=== PATIENT | male | born 1970 | race Caucasian/White ===

== ENCOUNTER 2024-06-14 17:02 | Inpatient (IN) | payer OTHER, SELFPAY ==
--- NOTE | ~2024-06-14 | CT_ITS ---
CLINICAL HISTORY: gi bleed CT abdomen and pelvis without and with contrast Indication: GI bleed Comparison: None. Findings: Lung bases are clear. The liver is nodular in contour. The spleen is enlarged. The gallbladder, adrenal glands and pancreas are unremarkable. Kidneys, ureters and bladder are normal. Diffuse stranding throughout the vasa recta. There is gas and fluid throughout nondistended small and large bowel. Mild hyperenhancement of bowel wall mucosa. No pneumatosis or free air. There is no evidence of contrast pooling within bowel lumen to suggest active GI bleed by CT. Pars defects are noted at L5. There is anterolisthesis of L5 with respect to S1. Impression: No evidence of active GI bleed by CT. Cirrhotic appearing liver with splenomegaly. Probable enteritis. Additional incidental findings. This document has been electronically signed by: Brayden Bailey MD on 06/15/2024 08:11:23
[2024-06-14 17:35] VITALS: BP 172/96; PULSE 105; RESP 20; TEMP 37; O2SAT 100; BMI 27.7
--- NOTE | 2024-06-14 17:39 | ED_ITS ---
HPI - General Adult General Chief complaint: GI Bleed Stated complaint: Vomiting blood Time Seen by Provider: 06/14/24 18:33 Source: patient Mode of arrival: ambulatory Limitations: no limitations History of Present Illness ED Provider: HPI narrative: Patient alcoholic drinks beer with history of grade 1 varices which was prophylactically ligated in 2021 were not bleeding at that time comes here as he was not feeling good earlier and since 14:00 started vomiting coffee colored had about 3 episodes also had 2 bowel movement which is dark in color no history of peptic ulcer in the past patient denied any history of alcohol withdrawal in the past Related Data Home Medications ?Medication ?Instructions ?Recorded ?Confirmed fexofenadine 60 mg tablet 60 mg PO DAILY 06/14/24 06/14/24 Previous Rx's ?Medication ?Instructions ?Recorded carvedilol 3.125 mg tablet 3.125 mg PO Q12H #180 tabs 06/15/24 pantoprazole 20 mg tablet,delayed 20 mg PO Q12H #120 tabs 06/15/24 release Allergies Allergy/AdvReac Type Severity Reaction Status Date / Time No Known Allergies Allergy Verified 06/15/24 13:42 Review of Systems 2 Review of Systems: Yes all other systems are reviewed and are negative PMFSH Past Medical History Medical History (Updated 06/15/24 @ 01:54 by Sly Harrison MD) Gastric varices without bleeding Alcoholic cirrhosis Surgical History (Updated 06/15/24 @ 13:42 by Jaelyn Sanchez RN) History of wisdom tooth extraction Hx of colonoscopy History of esophagogastroduodenoscopy (EGD) Social History Social History Household Members: Spouse Housing: House Are you a primary director of managed care to a significant other at home: No Do you presently have visiting nurse or other home services: No Alcohol intake: current Alcohol intake frequency: 3 or more drinks per day Alcohol type: beer Patient Tobacco Use Status: Never used Tobacco e-Cigarette/Vaping Use: Never Used Physical Exam ED Vital Signs: Vital Signs - 24 hr 06/14/24 17:35 06/14/24 18:21 Temperature 98.6 F 98.7 F Pulse Rate 105 H 112 H Respiratory Rate 20 16 Blood Pressure 172/96 H 171/96 H Pulse Oximetry 100 97 Oxygen Delivery Method Room Air Room Air BMI result Body Mass Index 27.7 Appearance: Alert. Oriented X3. No acute distress. Eyes: PERRLA, No Nystagmus no pallor ENT: Pharynx normal. Oral Mucosa moist Neck: Normal inspection. Neck supple. CVS: Normal heart rate and rhythm. Pulses normal. Respiratory: No respiratory distress. Equal air entry bilateral, no wheezing/rales/rhonchi Abdomen: Soft and nontender. Bowel sounds are present, no mass palpable, no CVA tenderness rectal: Black in color guaiac positive Skin: Skin warm and dry. Normal skin color. Normal skin turgor. Extremities: No lower extremity edema. No calf tenderness Neuro: Oriented X 3. No motor deficit. No sensory deficit.No cerebellar signs , cranial nerves II-XII intact Course Course Course Narrative: RME: 54-year-old male presents to ED for mutliple episodes vomiting coffee ground. Patient has past medical history of liver cirrhosis and esophageal varices due to drinking alcohol. Patient states abdominal pain and vomiting blood. Patient had labs ordered. Charges med aware to rule out GI bleed. Medications Administered Discontinued Medications Generic Name Dose Route Start Last Admin Trade Name Freq PRN Reason Stop Dose Admin Ceftriaxone Sodium 2 gm 06/14/24 19:47 06/14/24 20:06 Ceftriaxone Sodium 2 Gm Vial IVPUSH 06/14/24 19:48 2 gm ONCE ONE Administration Sodium Chloride 1,000 mls @ 999 mls/hr 06/14/24 18:39 06/14/24 20:15 Ns IV 06/14/24 19:39 Infused .Q1H1M ONE Infusion Pantoprazole Sodium 80 mg/ 100 mls @ 10 mls/hr 06/14/24 19:00 06/15/24 16:59 Sodium Chloride IV Not Given .Q10H ROSALBA 8 MG/HR Octreotide Acetate 500 mcg/ 501 mls @ 50.1 mls/hr 06/14/24 20:30 06/15/24 16:02 Sodium Chloride IVCONT Infused .Q10H ROSALBA Infusion 50 MCG/HR Thiamine HCl 100 mg/ Sodium 101 mls @ 202 mls/hr 06/14/24 22:20 06/15/24 09:07 Chloride IV Infused DAILY ROSALBA Infusion Iohexol 80 ml 06/14/24 19:58 06/14/24 19:58 Iohexol 350 Mg/Ml 100 Ml Infus..Btl IV 06/14/24 19:59 80 ml ONCE ONE Administration Octreotide Acetate 100 mcg 06/14/24 19:47 06/14/24 20:06 Octreotide Acetate 100 Mcg/Ml Ampul IVPUSH 06/14/24 19:48 100 mcg ONCE ONE Administration Ondansetron HCl 4 mg 06/14/24 20:08 06/14/24 20:21 Ondansetron Hcl 4 Mg/2 Ml Vial IVPUSH 06/14/24 20:09 4 mg ONCE ONE Administration Pantoprazole Sodium 80 mg 06/14/24 18:39 06/14/24 19:13 Pantoprazole Sodium 40 Mg/10 Ml Vial IVPUSH 06/14/24 18:40 80 mg ONCE ONE Administration Sodium Chloride 3 ml 06/15/24 00:00 06/15/24 17:00 0.9 % Sodium Chloride Flush 3 Ml Syringe IVFLUSH 3 ml QSHIFT ROSALBA Administration Medical Decision Making Medical Decision Making MDM Narrative: Patient with upper GI bleed with melena and coffee colored vomitus multiple times H&H stable vitals stable with history of alcohol use and grade 1 varices status post ligation. Case discussed with Dr. Yifan SULLIVAN advised to give Sandostatin along with Protonix IV also was given Rocephin for SBP prophylaxis patient was not noticed to have thrombocytopenia of 68k bleeding scan was ordered report is still pending hospitalist aware Differential Diagnosis Differential Diagnoses: The differential diagnosis associated with the presentation includes Alcoholic gastritis/peptic ulcer disease/variceal bleed/cirrhosis Admission/Observation Consideration of admission/observation: Escalation of care including admission/observation considered Consult Healthcare Provider Management of the patient was discussed with: Hospitalist Lab Data [facility] Lab Attestation statement: I reviewed the patient's lab results. 06/15/24 06:33 06/15/24 06:33 Labs: Lab Results 06/14/24 06/14/24 06/14/24 Range/Units 17:51 18:28 19:24 WBC 6.6 (4.8-10.8) X10*3/uL RBC 4.28 L (4.60-5.80) X10*6/uL Hgb 13.9 L (14.0-18.0) g/dl Hct 39.7 L (42.0-52.0) % MCV 92.8 (80.0-98.0) fL MCH 32.5 (27.0-33.0) pg MCHC 35.0 (31.0-36.0) g/dl RDW 13.6 (11.0-16.0) % Plt Count 68 L (160-400) X10*3/uL MPV 9.6 (9.4-12.4) fL Immature Gran % (Auto) 0.3 (0.0-0.4) % Neut % (Auto) 78.3 H (45-73) % Lymph % (Auto) 10.2 L (20-40) % [place] % (Auto) 10.2 (2-11) % Eos % (Auto) 0.5 (0-4) % Baso % (Auto) 0.5 (0-2) % Lymph # (Auto) 0.7 L (1.2-4.9) X10*3/uL [place] # (Auto) 0.7 (0.1-1.2) X10*3/uL Eos # (Auto) 0.0 (0.0-0.4) X10*3/uL Baso # (Auto) 0.0 (0.0-0.2) X10*3/uL Abs Immat Gran (auto) 0.02 (0.00-0.03) X10*3/uL Absolute Neuts (auto) 5.2 (2.0-8.3) x10*3/uL Absolute Nucleated RBC 0.000 (0.0-0.012) X10*3/uL Nucleated RBC % (auto) 0.0 (0.0-0.2) /100WBC PT 14.7 H (10.9-12.4) SEC INR 1.3 H (0.9-1.1) APTT 30.2 (26.0-36.8) SEC Sodium 141 (135-145) mmol/L Potassium 4.3 (3.3-5.1) mmol/L Chloride 104 (96-108) mmol/L Carbon Dioxide 27 (22-29) mmol/L Anion Gap 14 (12-20) BUN 17 H (9-16) mg/dL Creatinine 0.71 (0.5-1.4) mg/dL Estim Creat Clear Calc 129.0 Estimated GFR > 60 Random Glucose 187 H (60-115) mg/dL Calcium 9.0 (8.4-10.2) mg/dL Total Bilirubin 2.4 H (0.0-1.0) mg/dL AST 65 H (5-37) U/L ALT 51 H (0-40) U/L Alkaline Phosphatase 63 (39-117) U/L Total Protein 7.9 (6.5-8.0) g/dL Albumin 4.3 (3.5-5.0) g/dL Lipase 26 (8-78) U/L Stool Occult Blood POSITIVE (NEGATIVE) Ethyl Alcohol < 10 mg/dL Blood Type O Positive Antibody Screen NEGATIVE Independent Interpretation I performed an independent interpretation of an: CT Scan Interpretation: Pending bleeding scan Critical Care Time Critical Care Time Critical Care Time: Yes Total Critical Care Time: 55 Attestation: The patient was critically ill with a high probability of imminent or life threatening deterioration. I spent greater than 65??minutes of discontinuous time evaluating the patient,delivering critical care at the bedside, discussing and evaluating pertinent data with consultants. Critical care time does not include time spent performing separately billable procedures or teaching. Total time spent performing critical care was 55???minutes. Discharge Plan Discharge Clinical Impression: Acute upper GI bleed, Alcoholic cirrhosis, Thrombocytopenia, Alcohol use Patient Disposition: Admitted As Inpatient Interventions: Admission Worksheet (ED) Last Done: 06/14/24 21:52 Discharge Date/Time: 06/14/24 22:44
--- NOTE | 2024-06-14 17:41 | PC.NURSE ---
charge nurse made aware of patient to be brought back into main
[2024-06-14 17:55] LABS: MANUAL DIFF FLAG NO
[2024-06-14 18:03] LABS: INTERNATIONAL NORM RATIO 1.3 (0.9-1.1); Prothrombin Time 14.7 SEC (10.9-12.4)
[2024-06-14 18:05] LABS: Partial Thromboplastin Time 30.2 SEC (26.0-36.8)
[2024-06-14 18:14] LABS: Basophils Percent Auto 0.5 % (0-2); Eosinophils Percent Auto 0.5 % (0-4); Hematocrit 39.7 % (42.0-52.0); Hemoglobin 13.9 g/dl (14.0-18.0); Imm Gran Abs Auto 0.02 X10*3/uL (0.00-0.03); Imm Gran Pct Auto 0.3 % (0.0-0.4); Lymphocytes Absolute Auto 0.7 X10*3/uL (1.2-4.9); Lymphocytes Percent Auto 10.2 % (20-40); Mean Corpuscular Hemoglobin 32.5 pg (27.0-33.0); Mean Corpuscular Volume 92.8 fL (80.0-98.0); Monocytes Absolute Auto 0.7 X10*3/uL (0.1-1.2); Monocytes Percent Auto 10.2 % (2-11); Neutrophils Absolute Auto 5.2 x10*3/uL (2.0-8.3); Neutrophils Percent Auto 78.3 % (45-73); Red Blood Count 4.28 X10*6/uL (4.60-5.80); Red Cell Distribution Width 13.6 % (11.0-16.0); White Blood Count 6.6 X10*3/uL (4.8-10.8)
[2024-06-14 18:21] VITALS: BP 171/96; PULSE 112; RESP 16; TEMP 37.1; O2SAT 97
[2024-06-14 18:25] LABS: Mean Platelet Volume 9.6 fL (9.4-12.4); Platelet Count 68 X10*3/uL (160-400)
[2024-06-14 18:38] LABS: Alanine Aminotransferase 51 U/L (0-40); Albumin Level 4.3 g/dL (3.5-5.0); Alkaline Phosphatase 63 U/L (39-117); Anion Gap 14 (12-20); Aspartate Amino Transferase 65 U/L (5-37); Bilirubin Total 2.4 mg/dL (0.0-1.0); Blood Urea Nitrogen 17 mg/dL (9-16); Carbon Dioxide 27 mmol/L (22-29); Chloride 104 mmol/L (96-108); Estimated Glomerular Filt Rate > 60; Ethanol < 10 mg/dL; Glucose Random 187 mg/dL (60-115); Lipase 26 U/L (8-78); Potassium 4.3 mmol/L (3.3-5.1); Sodium 141 mmol/L (135-145); Total Protein 7.9 g/dL (6.5-8.0)
--- NOTE | 2024-06-14 18:39 | PC.NURSE ---
Patient is a 54-year-old male presents to ED for mutliple episodes vomiting coffee ground. Patient has past medical history of liver cirrhosis and esophageal varices due to drinking alcohol. Last episode occurred in June of 2022 where an EGD was performed and varices were banded. Patient alert and oriented. Jose Daniel and diaphoretic. cafeteria monitor applied and stach noted. Lungs clear bilat. Respiration even and non-labored. Abdomen soft. sl distended with positive bowel sounds. Denies any abdominal pain but c/o nausea. Positive pedal pulses with no edema.
[2024-06-14] MEDS: 0.9 % Sodium Chloride 1,000 ML 999 ML IV (19:13)
[2024-06-14] MEDS: Pantoprazole Sodium 40 MG/10 ML VIAL 80 MG IVPUSH (19:13)
[2024-06-14] MEDS: Pantoprazole Sodium 80 MG in 0.9 % Sodium Chloride 80 ML 10 MG IV (19:25)
[2024-06-14 19:37] LABS: OBS Int Ctl Valid YES; OBS1 POSITIVE (NEGATIVE)
[2024-06-14] MEDS: iohexoL 350 MG/ML 100 ML INFUS..BTL 80 ML IV (19:58)
[2024-06-14] MEDS: cefTRIAXone sodium 2 GM VIAL IVPUSH (20:06)
[2024-06-14] MEDS: Octreotide Acetate 100 MCG/ML AMPUL IVPUSH (20:06)
[2024-06-14] MEDS: Octreotide Acetate 500 MCG in 0.9 % Sodium Chloride 500 ML 50.1 MCG IVCONT (20:12)
[2024-06-14] MEDS: ondansetron HCL 4 MG/2 ML VIAL IVPUSH (20:21)
--- NOTE | 2024-06-14 20:40 | PC.NURSE ---
Patient vomited approximately 150cc of coffee ground emesis.
--- NOTE | 2024-06-14 21:25 | PM.IMHP ---
History of Present Illness Date of Service: 06/14/24 Chief Complaint: Coffee-ground emesis This has a 54-year-old male with pertinent history of alcoholic cirrhosis, not on prescription home medications who presents to the emergency department for evaluation of coffee-ground emesis. Patient states he had 3 episodes of coffee-ground emesis on the day of presentation. Also noticed black stools the day of presentation. Denies abdominal pain, fever or chills. Does have a history of alcoholic cirrhosis and does not take any home prescription medications for it. Patient states this happened 2 years ago when he was told he has varices. No chest pain, palpitations, shortness of breath, changes in urinary habits. In the emergency department, imaging with. Stool occult blood positive. Patient was initiated on IV Protonix, IV octreotide and given IV ceftriaxone in the ER. Review of Systems Constitutional: Constitutional: Reports fatigue and Reports malaise Cardiovascular: Cardiovascular: Reports no additional cardiovascular complaints Respiratory: Respiratory: Reports no additional respiratory complaints Gastrointestinal: Gastrointestinal: Reports melena and Reports coffee ground emesis Genitourinary: Genitourinary: Reports no additional male genitourinary complaints Endocrine: Endocrine: Reports fatigue [facility] Medical History Alcoholic cirrhosis Pertinent family history: No family history of early CAD Social History Alcohol intake: current Alcohol intake frequency: 3 or more drinks per day Alcohol type: beer Advance Directives: No Advance Directives Information Provided: No Meds Allergies Allergy/AdvReac Type Severity Reaction Status Date / Time No Known Allergies Allergy Verified 06/14/24 17:35 Active Medications: Current Medications Ceftriaxone Sodium (Ceftriaxone Sodium 1 Gm Vial) 1 gm IVPUSH Q24H ROSALBA Pantoprazole Sodium 80 mg/ (Sodium Chloride) 100 mls @ 10 mls/hr IV .Q10H ROSALBA Last Admin: 06/14/24 19:25 Dose: 8 mg/hr, 10 mls/hr Octreotide Acetate 500 mcg/ (Sodium Chloride) 501 mls @ 50.1 mls/hr IVCONT .Q10H ROSALBA Last Admin: 06/14/24 20:12 Dose: 50 mcg/hr, 50.1 mls/hr Home Medications ?Medication ?Instructions ?Recorded ?Confirmed ?Last Taken ?Type fexofenadine 60 mg tablet 60 mg PO DAILY 06/14/24 06/14/24 06/13/24 History omeprazole magnesium 20 mg 20 mg PO DAILY@0630 PRN Heartburn 06/14/24 06/14/24 Unknown History tablet,delayed release (Prilosec OTC) Physical Exam Vital Signs and Narrative: Vital Signs: Last Vital Signs Temp 98.7 F 06/14/24 18:21 Pulse 112 H 06/14/24 18:21 Resp 16 06/14/24 18:21 BP 171/96 H 06/14/24 18:21 Pulse Ox 97 06/14/24 18:21 O2 Del Method Room Air 06/14/24 18:21 BMI result Body Mass Index 27.7 Middle-aged male lying in bed in no distress Neck supple, no JVD Regular rate and rhythm, S1-S2 heard Regular breath sounds bilaterally, no wheezing or crackles appreciated Abdomen soft nontender, no guarding, no rigidity Patient is awake, alert and oriented to self, place, time and person ; no focal motor deficit Psych: Normal mood No pedal edema Results Labs 06/14/24 17:51 06/14/24 17:51 Labs: Laboratory Results - last 24 hr 06/14/24 06/14/24 06/14/24 17:51 18:28 19:24 MCV 92.8 MCH 32.5 MCHC 35.0 RDW 13.6 Plt Count 68 L MPV 9.6 Immature Gran % (Auto) 0.3 Neut % (Auto) 78.3 H Lymph % (Auto) 10.2 L [place] % (Auto) 10.2 Eos % (Auto) 0.5 Baso % (Auto) 0.5 Lymph # (Auto) 0.7 L [place] # (Auto) 0.7 Eos # (Auto) 0.0 Baso # (Auto) 0.0 Abs Immat Gran (auto) 0.02 Absolute Neuts (auto) 5.2 Absolute Nucleated RBC 0.000 Nucleated RBC % (auto) 0.0 PT 14.7 H INR 1.3 H APTT 30.2 Anion Gap 14 Estim Creat Clear Calc 129.0 Estimated GFR > 60 Random Glucose 187 H Calcium 9.0 Total Bilirubin 2.4 H AST 65 H ALT 51 H Alkaline Phosphatase 63 Total Protein 7.9 Albumin 4.3 Lipase 26 Stool Occult Blood POSITIVE Ethyl Alcohol < 10 Blood Type O Positive Antibody Screen NEGATIVE Assessment and Plan (1) Acute upper GI bleed: Status: Acute Plan This has a 54-year-old male with pertinent history of alcoholic cirrhosis, not on prescription home medications who presents to the emergency department for evaluation of coffee-ground emesis. #. Acute GI bleed in a patient with alcoholic cirrhosis: Will admit patient with cardiac monitoring. Continue IV octreotide and IV Protonix drip. Also initiated on IV ceftriaxone for SBP prophylaxis. Closely monitor hemodynamics and H&H. Consulted Gastroenterology, appreciate assistance. Patient not on diuretics, beta-gilson, will not initiate in the setting of active GI bleed. Also not on lactulose. #. Alcohol use disorder: Monitor CIWA. Initiating thiamine. #. Thrombocytopenia in the setting of cirrhosis Med rec pending DVT prophylaxis: Mechanical Full code Admit as inpatient and will require two night minimum hospital stay for management of GI bleed, close monitoring H&H and hemodynamics (as above), which is not possible in a lesser acute setting. Gastroenterology consult pending Quality Stroke Does the patient have a stroke diagnosis?: No VTE Prior VTE?: No VTE Risk Level:: Medical - moderate - high VTE Device Contraindication: N/A - Device Ordered VTE Drug Contraindication: Treatment Not Indicated
--- NOTE | 2024-06-14 21:41 | PHA.MEDREC ---
Addendum entered by Diamond Apodaca RPh 06/14/24 21:59: REVIEWED BY [facility] Original Note: Pharmacy Consult ? Medication Reconciliation Pharmacy has completed the medication reconciliation. Spoke with patient and at bedside who confirmed the pt is only taking Haritha 60mg once a day and Prilosec OTC 20mg tabs once as needed for heartburn and nothing else at this time.
--- NOTE | 2024-06-14 21:46 | PC.NURSE ---
Pt ambulatory to restroom with steady gait.
[2024-06-14 21:47] VITALS: BP 163/86; PULSE 106; RESP 16; TEMP 36.9; O2SAT 96
[2024-06-14 22:51] VITALS: BMI 27.4
[2024-06-14] MEDS: Thiamine HCL 100 MG in 0.9 % Sodium Chloride 100 ML 202 MG IV (23:42)
[2024-06-14] MEDS: 0.9 % Sodium Chloride Flush 3 ML SYRINGE IVFLUSH (23:48)
[2024-06-15] VITALS (9 sets, daily range): BP systolic 129–168; BP diastolic 75–88; PULSE 70–96; RESP 16–18; TEMP 36.6–37.4; O2SAT 96–98; BMI 28.2
[2024-06-15] MEDS: Pantoprazole Sodium 80 MG in 0.9 % Sodium Chloride 80 ML 10 MG IV (05:47)
[2024-06-15] MEDS: Octreotide Acetate 500 MCG in 0.9 % Sodium Chloride 500 ML 50.1 MCG IVCONT (05:48)
[2024-06-15 07:04] LABS: MANUAL DIFF FLAG NO
[2024-06-15 07:12] LABS: Basophils Percent Auto 0.5 % (0-2); Eosinophils Absolute Auto 0.1 X10*3/uL (0.0-0.4); Eosinophils Percent Auto 1.8 % (0-4); Hemoglobin 12.5 g/dl (14.0-18.0); Lymphocytes Absolute Auto 0.9 X10*3/uL (1.2-4.9); Lymphocytes Percent Auto 20.8 % (20-40); Mean Corpuscular HGB Conc 34.7 g/dl (31.0-36.0); Mean Corpuscular Hemoglobin 32.7 pg (27.0-33.0); Mean Corpuscular Volume 94.2 fL (80.0-98.0); Mean Platelet Volume 10.4 fL (9.4-12.4); Monocytes Absolute Auto 0.8 X10*3/uL (0.1-1.2); Monocytes Percent Auto 18.1 % (2-11); Neutrophils Absolute Auto 2.6 x10*3/uL (2.0-8.3); Neutrophils Percent Auto 58.8 % (45-73); Red Blood Count 3.82 X10*6/uL (4.60-5.80); Red Cell Distribution Width 13.6 % (11.0-16.0); White Blood Count 4.4 X10*3/uL (4.8-10.8)
[2024-06-15 07:13] LABS: Platelet Count 46 X10*3/uL (160-400)
[2024-06-15 07:35] LABS: Alanine Aminotransferase 40 U/L (0-40); Albumin Level 3.8 g/dL (3.5-5.0); Anion Gap 12 (12-20); Aspartate Amino Transferase 51 U/L (5-37); Bilirubin Total 3.1 mg/dL (0.0-1.0); Blood Urea Nitrogen 16 mg/dL (9-16); Calcium 8.4 mg/dL (8.4-10.2); Carbon Dioxide 29 mmol/L (22-29); Chloride 104 mmol/L (96-108); Creatinine Clr Calc Pharmacy 140.1; Estimated Glomerular Filt Rate > 60; Glucose Random 170 mg/dL (60-115); Potassium 3.7 mmol/L (3.3-5.1); Sodium 141 mmol/L (135-145); Total Protein 6.8 g/dL (6.5-8.0)
[2024-06-15 07:43] LABS: Alkaline Phosphatase 54 U/L (39-117)
[2024-06-15] MEDS: Thiamine HCL 100 MG in 0.9 % Sodium Chloride 100 ML 202 MG IV (08:32)
[2024-06-15] MEDS: 0.9 % Sodium Chloride Flush 3 ML SYRINGE IVFLUSH ×2 (08:39→17:00)
--- NOTE | 2024-06-15 09:03 | PM.GICN ---
History of Present Illness Data of Consult Service Date: 06/15/24 Requesting physician: Ciarra Metzger Primary Care Provider: Colten Mireles MD HPI Reason for consult: UGIB 54 y.o M with etOH use disorder that has led to cirrhosis with CSPH (hx of prophylactic EVBL 2022) who is here for UGIB. Pt reports hx of 7-8 beers per day. On Thursday he also had 3-4 drinks of hard liquor on top of routine etOH intake. Thursday started feeling unwell with x3 episodes of coffee ground emesis followed by 2 episodes of melena. No abd pain, heartburn, lightheadedness or chest pain. No NSAID use reported. Has known hx of cirrhosis, first diagnosed in 2022 - when needed to be admitted to [facility] for UGIB. EGD with small varices at that time. Pt maintained sobriety x 10 months after that but relapsed in 2023. Father with hx of etOH use disorder. On arrival to hospital vitals noted to be stable. H/H reviewed. LFts with AST>ALT and bili of 3.1. INR 1.3. CT bleed protocol was done in ER that confirms cirrhotic appearing liver with splenomegaly. Images independently reviewed that also show perogastric varices. Review of Systems Review of Systems: Yes all other systems are reviewed and are negative PMFSH Past Medical History Medical History (Updated 06/15/24 @ 01:54 by Sly Harrison MD) Gastric varices without bleeding Alcoholic cirrhosis Social History Social History Household Members: Spouse Housing: House Do you presently have visiting nurse or other home services: No Alcohol intake: current Alcohol intake frequency: 3 or more drinks per day Alcohol type: beer Patient Tobacco Use Status: Never used Tobacco e-Cigarette/Vaping Use: Never Used Meds Allergies Allergy/AdvReac Type Severity Reaction Status Date / Time No Known Allergies Allergy Verified 06/14/24 17:35 Active Medications: Current Medications Acetaminophen (Acetaminophen 325 Mg Tablet) 650 mg PO Q6H PRN PRN Reason: Pain, Mild 1-3,fever,headache Acetaminophen (Acetaminophen Supp 650 Mg Supp.Rect) 650 mg [place] Q6H PRN PRN Reason: Pain, Mild 1-3,fever,headache Calcium Carbonate (Calcium Carbonate 750 Mg Tab.Chew) 750 mg PO Q4H PRN PRN Reason: Heartburn Ceftriaxone Sodium (Ceftriaxone Sodium 1 Gm Vial) 1 gm IVPUSH Q24H [facility] Pantoprazole Sodium 80 mg/ (Sodium Chloride) 100 mls @ 10 mls/hr IV .Q10H [facility] Last Admin: 06/15/24 05:47 Dose: 8 mg/hr, 10 mls/hr Octreotide Acetate 500 mcg/ (Sodium Chloride) 501 mls @ 50.1 mls/hr IVCONT .Q10H [facility] Last Admin: 06/15/24 05:48 Dose: 50 mcg/hr, 50.1 mls/hr Thiamine HCl 100 mg/ Sodium (Chloride) 101 mls @ 202 mls/hr IV DAILY [facility] Last Admin: 06/15/24 08:32 Dose: 202 mls/hr Magnesium Hydroxide (Milk Of Magnesia 30 Ml Oral.Susp) 30 ml PO DAILY PRN PRN Reason: Constipation Melatonin (Melatonin 3 Mg Tablet) 6 mg PO BEDTIME PRN PRN Reason: Insomnia Ondansetron HCl (Ondansetron Hcl 4 Mg/2 Ml Vial) 4 mg IVPUSH Q8H PRN PRN Reason: Nausea and Vomiting Sodium Chloride (0.9 % Sodium Chloride Flush 3 Ml Syringe) 3 ml IVFLUSH QSHIFT [facility] Last Admin: 06/15/24 08:39 Dose: 3 ml Home Medications ?Medication ?Instructions ?Recorded ?Confirmed ?Last Taken ?Type fexofenadine 60 mg tablet 60 mg PO DAILY 06/14/24 06/14/24 06/13/24 History omeprazole magnesium 20 mg 20 mg PO DAILY@0630 PRN Heartburn 06/14/24 06/14/24 Unknown History tablet,delayed release (Prilosec OTC) Physical Exam Vital Signs: Vital Signs: Last Vital Signs Temp 98.8 F 06/15/24 07:00 Pulse 70 06/15/24 07:00 Resp 18 06/15/24 07:00 BP 154/86 H 06/15/24 07:00 Pulse Ox 96 06/15/24 07:00 O2 Del Method Room Air 06/15/24 07:00 BMI result Body Mass Index 28.2 middle aged man scleral icterus abd soft, nontender, nondistended no GABRIEL A/OX3, fine tremors, no asterixis Results Labs 06/15/24 06:33 06/15/24 06:33 Labs: Short CBC 06/14/24 06/15/24 Range/Units 17:51 06:33 WBC 6.6 4.4 L (4.8-10.8) X10*3/uL Hgb 13.9 L 12.5 L (14.0-18.0) g/dl Hct 39.7 L 36.0 L (42.0-52.0) % Plt Count 68 L 46 L D (160-400) X10*3/uL BMP 06/14/24 06/15/24 17:51 06:33 Sodium 141 141 Potassium 4.3 3.7 Chloride 104 104 Carbon Dioxide 27 29 BUN 17 H 16 Creatinine 0.71 0.71 Calcium 9.0 8.4 D Liver Function 06/14/24 06/15/24 Range/Units 17:51 06:33 Total Bilirubin 2.4 H 3.1 H (0.0-1.0) mg/dL AST 65 H 51 H (5-37) U/L ALT 51 H 40 (0-40) U/L Alkaline Phosphatase 63 54 (39-117) U/L Albumin 4.3 3.8 (3.5-5.0) g/dL Assessment and Plan (1) Acute upper GI bleed: Status: Acute (2) Alcohol use: Status: Acute (3) Alcoholic cirrhosis: Status: Acute Plan DDx include esophagitis, gastritis, duodenitis, PUD, MWT. Low suspicion for variceal hemorrhage given overall clinical presentation however not completely excluded. Plan: - Keep NPO for egd today - Agree with IV PPI, octreotide and ceftriaxone - MELD labs daily - Complete etOH abstinence reviewed - Addiction medicine consultation Thank you for allowing me to participate in his care. Please do not hesitate to reach out for any questions or concerns. Procedures Date of Service Date of Service: 06/15/24
--- NOTE | 2024-06-15 12:35 | P.PNIM_ITS ---
Subjective Subjective Date of Service: 06/15/24 Interval History: Pt seen and evaluated for f/u for coffee-ground emesis concerning for acute GI bleed Physical Exam 2 Vital Signs: Vital Signs: Last Vital Signs Temp 99.4 F 06/15/24 11:11 Pulse 71 06/15/24 11:11 Resp 18 06/15/24 11:11 BP 150/88 H 06/15/24 11:11 Pulse Ox 96 06/15/24 11:11 O2 Del Method Room Air 06/15/24 11:11 BMI result Body Mass Index 28.2 Objective Data Active Medications Acetaminophen (Acetaminophen 325 Mg Tablet) 650 mg PO Q6H PRN PRN Reason: Pain, Mild 1-3,fever,headache Acetaminophen (Acetaminophen Supp 650 Mg Supp.Rect) 650 mg MO Q6H PRN PRN Reason: Pain, Mild 1-3,fever,headache Calcium Carbonate (Calcium Carbonate 750 Mg Tab.Chew) 750 mg PO Q4H PRN PRN Reason: Heartburn Ceftriaxone Sodium (Ceftriaxone Sodium 1 Gm Vial) 1 gm IVPUSH Q24H [facility] Pantoprazole Sodium 80 mg/ (Sodium Chloride) 100 mls @ 10 mls/hr IV .Q10H [facility] Last Admin: 06/15/24 05:47 Dose: 8 mg/hr, 10 mls/hr Documented By: SKYE Octreotide Acetate 500 mcg/ (Sodium Chloride) 501 mls @ 50.1 mls/hr IVCONT .Q10H [facility] Last Admin: 06/15/24 05:48 Dose: 50 mcg/hr, 50.1 mls/hr Documented By: SKYE Thiamine HCl 100 mg/ Sodium (Chloride) 101 mls @ 202 mls/hr IV DAILY [facility] Last Infusion: 06/15/24 09:07 Dose: Infused Documented By: AIME Magnesium Hydroxide (Milk Of Magnesia 30 Ml Oral.Susp) 30 ml PO DAILY PRN PRN Reason: Constipation Melatonin (Melatonin 3 Mg Tablet) 6 mg PO BEDTIME PRN PRN Reason: Insomnia Ondansetron HCl (Ondansetron Hcl 4 Mg/2 Ml Vial) 4 mg IVPUSH Q8H PRN PRN Reason: Nausea and Vomiting Sodium Chloride (0.9 % Sodium Chloride Flush 3 Ml Syringe) 3 ml IVFLUSH QSHIFT [facility] Last Admin: 06/15/24 08:39 Dose: 3 ml Documented By: AIME Labs 06/15/24 06:33 06/15/24 06:33 Labs: Laboratory Results - last 24 hr 06/14/24 06/14/24 06/14/24 17:51 18:28 19:24 MCV 92.8 MCH 32.5 MCHC 35.0 RDW 13.6 Plt Count 68 L MPV 9.6 Immature Gran % (Auto) 0.3 Neut % (Auto) 78.3 H Lymph % (Auto) 10.2 L [place] % (Auto) 10.2 Eos % (Auto) 0.5 Baso % (Auto) 0.5 Lymph # (Auto) 0.7 L [place] # (Auto) 0.7 Eos # (Auto) 0.0 Baso # (Auto) 0.0 Abs Immat Gran (auto) 0.02 Absolute Neuts (auto) 5.2 Absolute Nucleated RBC 0.000 Nucleated RBC % (auto) 0.0 PT 14.7 H INR 1.3 H APTT 30.2 Anion Gap 14 Estim Creat Clear Calc 129.0 Estimated GFR > 60 Random Glucose 187 H Calcium 9.0 Total Bilirubin 2.4 H AST 65 H ALT 51 H Alkaline Phosphatase 63 Total Protein 7.9 Albumin 4.3 Lipase 26 Stool Occult Blood POSITIVE Ethyl Alcohol < 10 Blood Type O Positive Antibody Screen NEGATIVE 06/15/24 06:33 MCV 94.2 MCH 32.7 MCHC 34.7 RDW 13.6 Plt Count 46 L D MPV 10.4 Immature Gran % (Auto) 0.0 Neut % (Auto) 58.8 Lymph % (Auto) 20.8 [place] % (Auto) 18.1 H Eos % (Auto) 1.8 Baso % (Auto) 0.5 Lymph # (Auto) 0.9 L [place] # (Auto) 0.8 Eos # (Auto) 0.1 Baso # (Auto) 0.0 Abs Immat Gran (auto) 0.00 Absolute Neuts (auto) 2.6 Absolute Nucleated RBC 0.000 Nucleated RBC % (auto) 0.0 PT INR APTT Anion Gap 12 Estim Creat Clear Calc 140.1 Estimated GFR > 60 Random Glucose 170 H Calcium 8.4 D Total Bilirubin 3.1 H AST 51 H ALT 40 Alkaline Phosphatase 54 Total Protein 6.8 Albumin 3.8 Lipase Stool Occult Blood Ethyl Alcohol Blood Type Antibody Screen Quality Stroke Does the patient have a stroke diagnosis?: No VTE Prior VTE?: No VTE Risk Level:: Medical - moderate - high VTE Device Contraindication: N/A - Device Ordered VTE Drug Contraindication: Treatment Not Indicated
--- NOTE | 2024-06-15 13:20 | PC.NURSE ---
Labs reviewed preop by Dr. Eduardo. Dr. Eduardo aware of platelets 46 and INR 1.3. No new orders at this time. Okay to proceed with procedure at this time.
--- NOTE | 2024-06-15 14:00 | HO.ANESPROP2 ---
[facility] Active Problems Active Problems: All Active Problems Alcohol use (Acute) Thrombocytopenia (Acute) Acute upper GI bleed (Acute) Alcoholic cirrhosis (Acute) Past Medical History Medical History (Updated 06/15/24 @ 01:54 by Sly Harrison MD) Gastric varices without bleeding Alcoholic cirrhosis Family History Family history of problems with anesthesia: No Surgical History Surgical History (Updated 06/15/24 @ 13:42 by Jaelyn Sanchez RN) History of wisdom tooth extraction Hx of colonoscopy History of esophagogastroduodenoscopy (EGD) History of Problems with Anesthesia: No Social History Social History Household Members: Spouse Housing: House Are you a primary care analyst to a significant other at home: No Do you presently have visiting nurse or other home services: No Alcohol intake: current Alcohol intake frequency: 3 or more drinks per day Alcohol type: beer Patient Tobacco Use Status: Never used Tobacco e-Cigarette/Vaping Use: Never Used Meds Allergies Allergy/AdvReac Type Severity Reaction Status Date / Time No Known Allergies Allergy Verified 06/15/24 13:42 Active Medications: Current Medications Acetaminophen (Acetaminophen 325 Mg Tablet) 650 mg PO Q6H PRN PRN Reason: Pain, Mild 1-3,fever,headache Acetaminophen (Acetaminophen Supp 650 Mg Supp.Rect) 650 mg CO Q6H PRN PRN Reason: Pain, Mild 1-3,fever,headache Calcium Carbonate (Calcium Carbonate 750 Mg Tab.Chew) 750 mg PO Q4H PRN PRN Reason: Heartburn Ceftriaxone Sodium (Ceftriaxone Sodium 1 Gm Vial) 1 gm IVPUSH Q24H [facility] Pantoprazole Sodium 80 mg/ (Sodium Chloride) 100 mls @ 10 mls/hr IV .Q10H [facility] Last Admin: 06/15/24 05:47 Dose: 8 mg/hr, 10 mls/hr Octreotide Acetate 500 mcg/ (Sodium Chloride) 501 mls @ 50.1 mls/hr IVCONT .Q10H [facility] Last Admin: 06/15/24 05:48 Dose: 50 mcg/hr, 50.1 mls/hr Thiamine HCl 100 mg/ Sodium (Chloride) 101 mls @ 202 mls/hr IV DAILY [facility] Last Infusion: 06/15/24 09:07 Dose: Infused Magnesium Hydroxide (Milk Of Magnesia 30 Ml Oral.Susp) 30 ml PO DAILY PRN PRN Reason: Constipation Melatonin (Melatonin 3 Mg Tablet) 6 mg PO BEDTIME PRN PRN Reason: Insomnia Ondansetron HCl (Ondansetron Hcl 4 Mg/2 Ml Vial) 4 mg IVPUSH Q8H PRN PRN Reason: Nausea and Vomiting Sodium Chloride (0.9 % Sodium Chloride Flush 3 Ml Syringe) 3 ml IVFLUSH QSHIFT [facility] Last Admin: 06/15/24 08:39 Dose: 3 ml Home Medications ?Medication ?Instructions ?Recorded ?Confirmed ?Last Taken ?Type fexofenadine 60 mg tablet 60 mg PO DAILY 06/14/24 06/14/24 06/13/24 History omeprazole magnesium 20 mg 20 mg PO DAILY@0630 PRN Heartburn 06/14/24 06/14/24 Unknown History tablet,delayed release (Prilosec OTC) Exam Height,Weight and Vital Signs: Height 6 ft Weight 94.3 kg Last Vital Signs Temp 97.9 F 06/15/24 13:37 Pulse 80 06/15/24 13:37 Resp 18 06/15/24 13:37 BP 168/88 H 06/15/24 13:37 Pulse Ox 98 06/15/24 13:37 O2 Del Method Room Air 06/15/24 13:37 Pertinent Lab Results Pertinent Lab Results: Laboratory Tests 06/14/24 06/14/24 06/14/24 17:51 18:28 19:24 WBC 6.6 RBC 4.28 L Hgb 13.9 L Hct 39.7 L MCV 92.8 MCH 32.5 MCHC 35.0 RDW 13.6 Plt Count 68 L MPV 9.6 Immature Gran % (Auto) 0.3 Neut % (Auto) 78.3 H Lymph % (Auto) 10.2 L [place] % (Auto) 10.2 Eos % (Auto) 0.5 Baso % (Auto) 0.5 Lymph # (Auto) 0.7 L [place] # (Auto) 0.7 Eos # (Auto) 0.0 Baso # (Auto) 0.0 Abs Immat Gran (auto) 0.02 Absolute Neuts (auto) 5.2 Absolute Nucleated RBC 0.000 Nucleated RBC % (auto) 0.0 PT 14.7 H INR 1.3 H APTT 30.2 Sodium 141 Potassium 4.3 Chloride 104 Carbon Dioxide 27 Anion Gap 14 BUN 17 H Creatinine 0.71 Estim Creat Clear Calc 129.0 Estimated GFR > 60 Random Glucose 187 H Calcium 9.0 Total Bilirubin 2.4 H AST 65 H ALT 51 H Alkaline Phosphatase 63 Total Protein 7.9 Albumin 4.3 Lipase 26 Stool Occult Blood POSITIVE Ethyl Alcohol < 10 Blood Type O Positive Antibody Screen NEGATIVE 06/15/24 06:33 WBC 4.4 L RBC 3.82 L Hgb 12.5 L Hct 36.0 L MCV 94.2 MCH 32.7 MCHC 34.7 RDW 13.6 Plt Count 46 L D MPV 10.4 Immature Gran % (Auto) 0.0 Neut % (Auto) 58.8 Lymph % (Auto) 20.8 [place] % (Auto) 18.1 H Eos % (Auto) 1.8 Baso % (Auto) 0.5 Lymph # (Auto) 0.9 L [place] # (Auto) 0.8 Eos # (Auto) 0.1 Baso # (Auto) 0.0 Abs Immat Gran (auto) 0.00 Absolute Neuts (auto) 2.6 Absolute Nucleated RBC 0.000 Nucleated RBC % (auto) 0.0 PT INR APTT Sodium 141 Potassium 3.7 Chloride 104 Carbon Dioxide 29 Anion Gap 12 BUN 16 Creatinine 0.71 Estim Creat Clear Calc 140.1 Estimated GFR > 60 Random Glucose 170 H Calcium 8.4 D Total Bilirubin 3.1 H AST 51 H ALT 40 Alkaline Phosphatase 54 Total Protein 6.8 Albumin 3.8 Lipase Stool Occult Blood Ethyl Alcohol Blood Type Antibody Screen Airway Mallampati Class: II TM Dist: >3cm Neck ROM: Full Heart: rrr Lungs: cta Assessment and Plan Assessment Anesthesia Assessment: Anesthesia Plan Discussed and Chart Reviewed Final Anesthetic Review Family History of Problems with Anesthesia: No History of Problems with Anesthesia: No NPO: No ASA Class: III Final Preanesthetic Review: No Changes in Pt Med Stat, Meds/Allgs Chart Reviewed and Consent Obtained/Reviewed Patient Risk: Intermediate Procedure Risk: Intermediate Anesthetic Plan Anesthetic Plan: MAC: Disposition: Standard PACU
--- NOTE | 2024-06-15 14:07 | P.OP_ITS ---
Operative Note Operative Note Date of Service: 06/15/24 Narrative: Procedure: Esophagogastroduodenoscopy Endoscopist: Kaelyn Saha MD Indication: UGIB Anesthesia Provider: Dr Cindy Alejandra Anesthesia Type: MAC ?? EGD Procedure:?? The procedure, indications, preparation and potential complications were reviewed with the patient, who indicated understanding and gave written informed consent to proceed. A physical exam was performed. The endoscope was introduced through the mouth, and advanced to the second part of duodenum. The mucosa was carefully examined on slow withdrawal of the endoscope. The patient tolerated the procedure well. There were no immediate complications.? ? EGD Findings:? * Esophagus:? Normal mucosa noted in the entire esophagus. The Z line was at 40 cm. Grade I esophageal varices without stigmata of recent bleeding. * Stomach:? Normal mucosa was noted in the stomach. Diffuse congestion and erythema in mosaic pattern consistent with portal hypertensive gastropathy was noted in the whole stomach. Retroflexion was performed in the cardia. Isolated gastric varix noted along the lesser curvature of the stomach in the fundus. * Duodenum:? Erythema edema and erosions noted in the duodenal bulb and first portion of the duodenum. ? EGD Impressions:? * Grade I varices * IGV-1 varix * Portal hypertensive gastropathy * Duodenitis ?? Recommendations:?? * OK to advance diet * Can stop octreotide * Switch pantoprazole to PO. Cont pantorpazole 20 mg BID x 8 weeks and then once daily * Start carvedilol 3.125 mg BID for variceal prophylaxis * Counseling for etOH cessation * Avoid NSAIDs and smoking Above has been reviewed with the patient, was also updated over the phone.
--- NOTE | 2024-06-15 15:20 | PM.EVENT ---
Event Note Date of Service: 06/15/24 Event Note: Addiciton consult placed for patient Patient in [facility] for EGD will see in AM 5/8 Time Spent With Patient Time: Total time managing care of this patient today ____ minutes.
--- NOTE | 2024-06-15 17:18 | P.DS_ITS ---
DS: Providers Provider Date of Service: 06/15/24 Date of admission: 06/14/24 20:19 Date of discharge: 06/15/24 Primary care physician: Colten Mireles MD Consults: 06/14/24 21:24 Consult to Gastroenterology Routine Consulting Provider: Kaelyn Saha Reason for consultation: coffee ground emesis 06/15/24 05:29 Addiction Medicine Provider Routine Consulting Provider: Addiction Covering Reason for consultation: ETOH Has provider been notified: Yes DS: Diagnosis Discharge Diagnosis (1) Acute upper GI bleed: Status: Acute (2) Alcohol use: Status: Acute (3) Alcoholic cirrhosis: Status: Acute DS: Summary Hospital Course Hospital Course: From admission H&P: This has a 54-year-old male with pertinent history of alcoholic cirrhosis, not on prescription home medications who presents to the emergency department for evaluation of coffee-ground emesis. Patient states he had 3 episodes of coffee- ground emesis on the day of presentation. Also noticed black stools the day of presentation. Denies abdominal pain, fever or chills. Does have a history of alcoholic cirrhosis and does not take any home prescription medications for it. Patient states this happened 2 years ago when he was told he has varices. No chest pain, palpitations, shortness of breath, changes in urinary habits. In the hospital patient's last episode of emesis was approximately 21:00. Has not had resumption of nausea or vomiting since then. Complains of mild acid reflux type symptoms, but denies abdominal pain. Reports drinks 6-8 beers daily, but declined Addiction medicine consult. Pt was monitored on CIWA during stay but never scored any points. No indication of active alcohol withdrawal. Pt underwent EGD that found grade 1 varices, portal hypertensive gastropathy, and duodenitis, but no acute bleeding. Octreotide and IV Protonix were stopped and pt was started on pantoprazole p.o. Spoke to pt after EGD and he wished to go home without staying to night for monitoring CBC. Discussed case with GI and given relatively benign EGD and stable clinical picture as well as vital signs, pt was discharged back home on pantoprazole 20 mg p.o. b.i.d. x8 weeks then once daily and started on carvedilol 3.125 mg b.i.d. for variceal prophylaxis. Pt was initially treated with empiric ceftriaxone for SBP, the pt has no SIRS criteria, abdominal pain, or abdominal distention. No indication to continue antibiotics upon discharge. Time Attestation Discharge Coordination Time (in mins): 35 Quality: Safe Use of Opioids Does Pt have an Active Cancer Diagnosis on the Problem List?: No Quality: Stroke Does the patient have a stroke diagnosis?: No Physical Exam Vital Signs: Vital Signs: Last Vital Signs Temp 98.2 F 06/15/24 15:13 Pulse 71 06/15/24 15:13 Resp 16 06/15/24 15:13 BP 135/78 06/15/24 15:13 Pulse Ox 97 06/15/24 15:13 O2 Del Method Room Air 06/15/24 15:13 O2 Flow Rate 4 06/15/24 14:30 BMI result Body Mass Index 28.2 General: AOx3, no acute distress Resp: CTA bilaterally CVS: S1, S2, RRR GI: +BS, NT, no distention Skin: Warm, dry Neuro: Cranial nerves II-XII grossly intact bilaterally. Motor grossly intact bilaterally. No upper extremity tremors noted. Extremities: No edema Psych: Appropriate affect DS: Data Data Completed and Pending Labs on day of discharge: Laboratory Results - last 24 hr 06/14/24 06/14/24 06/14/24 17:51 18:28 19:24 WBC 6.6 RBC 4.28 L Hgb 13.9 L Hct 39.7 L MCV 92.8 MCH 32.5 MCHC 35.0 RDW 13.6 Plt Count 68 L MPV 9.6 Immature Gran % (Auto) 0.3 Neut % (Auto) 78.3 H Lymph % (Auto) 10.2 L [place] % (Auto) 10.2 Eos % (Auto) 0.5 Baso % (Auto) 0.5 Lymph # (Auto) 0.7 L [place] # (Auto) 0.7 Eos # (Auto) 0.0 Baso # (Auto) 0.0 Abs Immat Gran (auto) 0.02 Absolute Neuts (auto) 5.2 Absolute Nucleated RBC 0.000 Nucleated RBC % (auto) 0.0 PT 14.7 H INR 1.3 H APTT 30.2 Sodium 141 Potassium 4.3 Chloride 104 Carbon Dioxide 27 Anion Gap 14 BUN 17 H Creatinine 0.71 Estim Creat Clear Calc 129.0 Estimated GFR > 60 Random Glucose 187 H Calcium 9.0 Total Bilirubin 2.4 H AST 65 H ALT 51 H Alkaline Phosphatase 63 Total Protein 7.9 Albumin 4.3 Lipase 26 Stool Occult Blood POSITIVE Ethyl Alcohol < 10 Blood Type O Positive Antibody Screen NEGATIVE 06/15/24 06:33 WBC 4.4 L RBC 3.82 L Hgb 12.5 L Hct 36.0 L MCV 94.2 MCH 32.7 MCHC 34.7 RDW 13.6 Plt Count 46 L D MPV 10.4 Immature Gran % (Auto) 0.0 Neut % (Auto) 58.8 Lymph % (Auto) 20.8 [place] % (Auto) 18.1 H Eos % (Auto) 1.8 Baso % (Auto) 0.5 Lymph # (Auto) 0.9 L [place] # (Auto) 0.8 Eos # (Auto) 0.1 Baso # (Auto) 0.0 Abs Immat Gran (auto) 0.00 Absolute Neuts (auto) 2.6 Absolute Nucleated RBC 0.000 Nucleated RBC % (auto) 0.0 PT INR APTT Sodium 141 Potassium 3.7 Chloride 104 Carbon Dioxide 29 Anion Gap 12 BUN 16 Creatinine 0.71 Estim Creat Clear Calc 140.1 Estimated GFR > 60 Random Glucose 170 H Calcium 8.4 D Total Bilirubin 3.1 H AST 51 H ALT 40 Alkaline Phosphatase 54 Total Protein 6.8 Albumin 3.8 Lipase Stool Occult Blood Ethyl Alcohol Blood Type Antibody Screen Discharge Plan Discharge Anticipated Discharge Date/Time: 06/15/24 18:00 Patient Disposition: Home, Self-Care Discharge Diagnosis: Duodenitis Referrals: Colten Mireles MD [Primary Care Provider] - 1 Week Discharge Medications: New carvedilol 3.125 mg tablet 3.125 mg PO Q12H Qty: 180 0RF Rx Instructions: must administer with a meal/food. Take one tablet twice a day for variceal prophylaxis pantoprazole 20 mg tablet,delayed release (DR/EC) 20 mg PO Q12H Qty: 120 0RF Rx Instructions: Take one 20mg tablet twice daily for 8 weeks, then once daily after that Continued fexofenadine 60 mg Tablet 60 mg PO DAILY Discontinued omeprazole magnesium [Prilosec OTC] 20 mg Tablet,Delayed Release (Dr/Ec) 20 mg PO DAILY@0630 PRN (Reason: Heartburn) Discharge Orders: Discharge Order (Routine); Ordered 06/15/24 Ordered By: Sancho Mistry Activity on Discharge: As tolerated Stand Alone Forms: Patient Portal Discharge page Print Language: Albanian Care Plan Goals: Full resolution of symptoms See below Health Concerns: Return of symptoms, including coffee-ground emesis and black stool Variceal bleeding Continued alcohol use Plan of Treatment: Take pantoprazole 20 mg twice a day for 8 weeks, then take once daily after that Start carvedilol 3.125 mg twice a day for variceal prophylaxis Alcohol cessation strongly encouraged Avoid NSAIDs and smoking Assessment: See discharge summary Discharge Date/Time: 06/15/24 18:32
--- NOTE | 2024-06-17 08:15 | P.CDIM_ITS ---
PROVIDER RESPONSE TEXT: To clarify, the appropriate diagnosis supported by the clinical indicators: Acute QUERY TEXT: PHYSICIAN'S DOCUMENTATION REQUEST Date of Query: 06/16/2024 10:02 AM EDT Patient Name: Remy Bashir Admit Date: 06/15/2024 Dear Sancho BROOKS, RETROSPECTIVE QUERY A review of the medical record indicates additional documentation may be needed. Please review below and update the documentation accordingly. Clinical Indicators: GI 06/15/24 - EGD - Impression: Duodenitis Duodenum: Erythema edema and erosions noted in the duodenal bulb and first portion of the duodenum. Discharge summary 06/15/24 - Patient underwent EGD that found grade 1 varices, portal hypertensive lazara ropathy and duodenitis, but no acute bleeding. Clarify which of the following accurately represents the acuity of the Duodenitis: Acute Chronic (erosive) Other specified Other (explain) Clinically unable to determine (explain) Thank you, Phyllis Stapleton, CCS, CDIS Use of terms such as suspected, likely, concern for, or probable (associated with a specific diagnosi s that is being evaluated, monitored, or treated as if it exists) are acceptable and can be coded in the inpatient se tting, when documented at the time of discharge. Please use your independent medical judgment in providing your response. THIS QUERY IS PART OF THE PERMANENT MEDICAL RECORD
== END 2024-06-15 18:32 | disposition home or self-care (01) | DRG 432 ==
LOC: HO.ED 18:33 → HO.EDOVER 20:21 → HO.IMC 20:41
PROVIDERS: Internal Medicine; Physician Assistant; Admitting Provider Student in an Organized Health Care Education/Training Program; Emergency Provider Internal Medicine; PCP Internal Medicine; Visit Provider Student in an Organized Health Care Education/Training Program
PROC: 0DJ08ZZ Inspection of Upper Intestinal Tract, Via Natural or Artificial Opening Endoscopic (ICD-10-PCS; CPT 43235; principal; 2024-06-15 13:50)
DX: K70.30 Alcoholic cirrhosis of liver without ascites (principal); I85.11 Secondary esophageal varices with bleeding; K26.0 Acute duodenal ulcer with hemorrhage; K76.6 Portal hypertension; K31.89 Other diseases of stomach and duodenum; Z79.899 Other long term (current) drug therapy
CPT/HCPCS: 43235; 36415; 74178; 80053; 80307; 82272; 83690; 85025; 85610; 85730; 86850; 86900; 86901; 99222; 99285; J0696; J2003; J2250; J2354; J2405; J2470; J2704; J3411; Q9967

== ENCOUNTER → 2024-06-14 19:17 | Outpatient (BNV) | payer OTHER, SELFPAY | PROVIDERS: Admitting Provider Student in an Organized Health Care Education/Training Program; Emergency Provider Internal Medicine; PCP Internal Medicine; Visit Provider Radiology Vascular & Interventional Radiology | DX: K92.2 Gastrointestinal hemorrhage, unspecified (principal) | CPT/HCPCS: 74178 ==

== ENCOUNTER → 2024-06-14 20:19 | Outpatient (BNV) | payer OTHER, SELFPAY | PROVIDERS: Admitting Provider Student in an Organized Health Care Education/Training Program; Emergency Provider Internal Medicine; PCP Internal Medicine; Visit Provider Student in an Organized Health Care Education/Training Program | DX: K92.2 Gastrointestinal hemorrhage, unspecified (principal) | CPT/HCPCS: 99222 ==

== ENCOUNTER → 2024-06-14 20:19 | Outpatient (BNV) | payer OTHER, SELFPAY | PROVIDERS: Admitting Provider Student in an Organized Health Care Education/Training Program; Emergency Provider Internal Medicine; PCP Internal Medicine; Visit Provider Internal Medicine | DX: K92.2 Gastrointestinal hemorrhage, unspecified (principal); K70.30 Alcoholic cirrhosis of liver without ascites; K31.89 Other diseases of stomach and duodenum; I86.4 Gastric varices; K29.80 Duodenitis without bleeding | CPT/HCPCS: 43235; 99222 ==